=== PATIENT | female | born 1945 | race Caucasian/White ===

== ENCOUNTER → 2018-10-31 | Outpatient (CLI) | payer OTHER ==
[~2018-10-31] VITALS: Ht 157.5 cm; Wt 75.3 kg
[~2018-10-31] MED LIST: LEXAPRO 10 MG T10 M1 PO; LOPRESSOR25 PO; MELATONIN5 M1 PO; METFORMIN HCL500 MG PO; MULTIVITAMINS1 EAC6 PO; SIMVASTATIN40 MG PO; TYLENOL EXTRA500 MG PO; ZANTAC 150MG T150 MG PO
--- NOTE | ~2018-10-31 | P ---
[facility] [place] [address] PROCEDURE REPORT Name: RADHA VIERA Room #: REG [facility]#: [id number] Admission: 10/31/18 Attend Phys: Rob Coyle MD Discharge: Date of : 47 Report #: [id number] THIS REPORT FOR: //name// CC: Tad Coyle BRIEF HISTORY: The patient is a 73-year-old woman with complaints of unexplained 10-pound weight loss. She reports she has no appetite. She does report some early satiety, but no nausea or vomiting. She does have diabetes. Discomfort is mostly mid abdomen. It is vague. Ranitidine helps to some degree, but not completely. She does use nonsteroidal and 6 months or so ago switched from ibuprofen to Aleve. PREOPERATIVE DIAGNOSIS: Abdominal pain, possibly early satiety and weight loss. POSTOPERATIVE DIAGNOSES: 1. Multiple small gastric ulcers, likely nonsteroidal related. 2. Submucosal lesion second portion of duodenum, questionably lipoma. MEDICATIONS: Deep sedation with propofol per anesthesia. SPECIMENS: 1. Biopsy of submucosal lesion, second portion of duodenum. 2. Biopsies of gastric ulcers. ESTIMATED BLOOD LOSS: 3 mL. PROCEDURE: EGD with biopsy. FINDINGS: Prior to propofol sedation, procedure of upper endoscopy was discussed with the patient as well as potential risks and its complications. She indicates she understands and desires to proceed. DESCRIPTION OF PROCEDURE: With the patient in the left lateral decubitus position, the Olympus video endoscope was inserted in the cervical esophagus under direct vision without difficulty. Examination of this organ through its entire length revealed normal esophageal mucosa down to the squamocolumnar junction. The squamocolumnar junction was inspected and noted to be unremarkable. A hiatus hernia was not seen. The scope was advanced into the stomach, was examined on end view as well as retroflexed views. In the distal stomach, especially along the incisura in the proximal antrum, multiple ulcerations were seen. Some of them were linear in the range of about 2 to 3 cm. They clearly had depth. However, there is no evidence of bleeding or blood clot. They all had a benign appearance. Some of them were stellate. No obstructing lesions were seen. Upon retroflexion, the mucosa in the proximal stomach was intact. No mass lesions were seen. The pylorus, duodenal bulb and [address] [address] PROCEDURE REPORT Name: RADHA VIERA Room #: REG [facility]#: [id number] Admission: 10/31/18 Attend Phys: Rob Coyle MD Discharge: Date of : 47 Report #: [id number] postbulbar duodenal sweep were inspected. Mucosa was normal. However, in the second portion of the duodenum was a 2 x 4 cm oblong submucosal lesion. The overlying mucosa was normal. Probing with a closed biopsy forceps revealed it was very soft and pliable. It was not hard. Multiple biopsies were obtained and with biopsy there appeared to be some yellowish material consistent with fat and this may be a lipoma. At that point, the scope was slowly withdrawn and careful circumferential views confirmed the above findings. The patient tolerated the procedure well. CONDITION OF THE PATIENT UPON DISCHARGE: Following procedure, the patient drowsy, arousable and conversant. She will be discharged to home when fully ambulatory. INSTRUCTIONS TO THE PATIENT AND FAMILY AT THE TIME OF DISCHARGE: The patient with findings as noted above. She clearly has evidence of mucosal disease with ulceration. This is likely nonsteroidal related. I advised her to discontinue her Aleve. She should follow up with Dr. Wallis with regards to further management of her joint complaints. Suggest Tylenol at this point in time. We will have her switch from ranitidine to pantoprazole 40 mg daily. If symptoms continue, other considerations for evaluation include a gastric emptying study as there are some symptoms of early satiety and she does have diabetes. Also, consider CT scan of the abdomen especially in view of her complaints of pain as well as diabetes and it is noted her father had pancreatic cancer. She will return to the care of Dr. Tad Wallis and I have suggested to return to see me in followup if her symptoms do not improve in the next several weeks. Once her symptoms are under control and treatment with pantoprazole for about 6-8 weeks, she may try to reduce pantoprazole to lowest dose possible to control symptoms or even stop if she is off of nonsteroidals. By: [id number] Rob Coyle MD /nt
--- NOTE | 2018-11-04 08:08 | PATH ---
[facility] [address] [place] [address] PATHOLOGY RPT PROCEDURE Name: MORE JUNIOR Room #: REG [facility]..#: [id number] Admission: 10/31/18 Date of : 47 Discharge: Report #: [id number] Path Case #: [id number] [facility] Accession Number: [id number] . 01 Material submitted: . PART A: BX SUBMUCOSAL LESION 2ND PART DUODENUM PART B: BX GASTRITIS . 01 Clinical history: . Pre-OP DX: Weight loss, dyspepsia Post-OP DX: Gastric ulcers, submucosal lesion second portion duodenum . 02 Diagnosis: A. Submucosal lesion, second part duodenum, endoscopic biopsy: - Fragments of mature adipose tissue with fat necrosis (please see comment). - Overlying epithelium showing no significant diagnostic abnormalities. . B. Gastric mucosa, gastritis, endoscopic biopsy: - Moderate reactive gastropathy. - Negative for intestinal metaplasia or atrophy. - Negative for Helicobacter pylori (properly controlled immunohistochemical stain performed). . (IUV:railroad car painter; 11/01/2018) MBR/11/01/2018 . 02 Comment: The fragments of "submucosal lesion second part duodenum" sampled show mature adipose tissue associated with fat necrosis. This may represent a partially sampled lipoma present underneath the mucosa. Please correlate clinically. (IUV:railroad car painter; 11/01/2018) . 02 Electronically signed: . Talia Mendez MD, Pathologist NPI- [id number] . 01 Gross description: . A. Received in formalin labeled "More Junior, BX submucosal lesion second part duodenum," are multiple segments of lopes soft tissue measuring 1.4 x 0.3 x 0.1 cm in aggregate dimensions. The specimen is filtered and entirely submitted in cassette A1. . B. Received in formalin labeled "MarcellorishiAparnacy, BX gastritis, rule out H. pylori," are multiple segments of lopes soft tissue measuring 1.5 x 0.5 x 0.1 cm in aggregate dimensions. The specimen is filtered and entirely [address] [address] PATHOLOGY RPT PROCEDURE Name: MORE JUNIOR J Room #: REG [facility].#: [id number] Admission: 10/31/18 Date of : 47 Discharge: Report #: [id number] Path Case #: [id number] submitted in cassette B1. (TSD; 10/31/2018) TOB/TOB . 02 Pathologist provided ICD-10: K31.9, R10.13 . 02 CPT . 043522, 802582, B62117 Specimen Comment: A courtesy copy of this report has been sent to Specimen Comment: [phone], . Specimen Comment: Report sent to DR JENNINGS / DR BREEN Performed at: [address], [place], [place] [id number] MD Jared Winters MD Phone: [phone] Performed at: [address] [id number] MD Talia Mendez MD Phone: [phone]
== END | disposition home or self-care (01) ==
LOC: GI 06:27
DX: K31.9 Disease of stomach and duodenum, unspecified (principal); M79.89 Other specified soft tissue disorders; K25.9 Gastric ulcer, unspecified as acute or chronic, without hemorrhage or perforation; Z79.899 Other long term (current) drug therapy
CPT/HCPCS: 62110; 62900